=== PATIENT | female | born 2000 | race Caucasian/White ===

== ENCOUNTER → 2022-02-11 10:30 | Outpatient (BNVA) | payer MEDICAID, SELFPAY | PROVIDERS: Family Provider Pediatrics Adolescent Medicine; PCP Pediatrics Adolescent Medicine; Visit Provider Nurse Practitioner Women's Health | DX: N92.6 Irregular menstruation, unspecified (principal) | CPT/HCPCS: 81025 ==

== ENCOUNTER → 2022-02-21 09:25 | Outpatient (BNVA) | payer MEDICAID, SELFPAY | PROVIDERS: Family Provider Pediatrics Adolescent Medicine; PCP Pediatrics Adolescent Medicine; Visit Provider Obstetrics & Gynecology | DX: Z34.90 Encounter for supervision of normal pregnancy, unspecified, unspecified trimester (principal) | CPT/HCPCS: 80307; 81000; 82950; 84443; 85025; 86592; 86762; 86803; 86850; 86900; 87086; 87340; 87806 ==

== ENCOUNTER → 2022-03-03 08:16 | Outpatient (BNVA) | payer MEDICAID, SELFPAY | PROVIDERS: Family Provider Pediatrics Adolescent Medicine; PCP Pediatrics Adolescent Medicine; Visit Provider Nurse Practitioner Women's Health | DX: Z34.90 Encounter for supervision of normal pregnancy, unspecified, unspecified trimester (principal) | CPT/HCPCS: 81000; 82951; 82952; 87086; 87491; 87591; 87661 ==

== ENCOUNTER → 2022-04-16 13:44 | Outpatient (BNVA) | payer MEDICAID, SELFPAY | PROVIDERS: Family Provider Pediatrics Adolescent Medicine; PCP Pediatrics Adolescent Medicine; Visit Provider Obstetrics & Gynecology | DX: Z34.90 Encounter for supervision of normal pregnancy, unspecified, unspecified trimester (principal) | CPT/HCPCS: 81000; 87086 ==

== ENCOUNTER 2022-04-19 21:54 | Emergency (ER) | payer MEDICAID, SELFPAY ==
[2022-04-19 21:58] VITALS: BP 160/104; PULSE 111; RESP 16; TEMP 37.1; O2SAT 100
--- NOTE | 2022-04-19 22:11 | W.ED.ABDPA2 ---
HPI - Abdominal Pain General: Chief Complaint: Abdominal Pain Stated Complaint: abd pain Time Seen by Provider: 04/19/22 21:58 Source: patient Mode of arrival: ambulatory Limitations: no limitations History of Present Illness: 21-year-old female who is currently 18 weeks states she been having some left upper quadrant abdominal pain throughout the day. States that pain has been cramping and sharp in nature she is also had a mild headache this is her first she denies any lower abdominal pain denies any discharge or bleeding. Patient is hypertensive here states she had some mild hypertension throughout the is not on any medication at this time. Associated Symptoms: Denies chills, dysuria and fever(s) Review of Systems Const: Denies: fever(s), chills, body aches or change in appetite Eyes: Denies: blurry vision or eye discomfort ENMT: Denies: throat pain or dental pain Card: Denies: chest pain Resp: Denies: dyspnea GI: Reports: abdominal pain : Denies: dysuria Musc: Denies: neck pain or back pain Skin/Breast: Denies: rash Neuro: Reports: headache(s) Psych: Denies: depression Dominguez/Lymph: Denies: easy bruising All/Imm: Denies: urticaria PFSH ED PFSH: Medical History No pertinent past medical history neghx: htn,dm,thyroid,dvt/pe PCP: Dr. Austin Surgical History Hx of oral surgery (~2014) unsure of specifics of the surgery Hx of tonsillectomy (~2012) Family History Family/Other Breast cancer Maternal Great Grandmother--dx age 60's Denies family history of Colon cancer Ovarian cancer Diabetes Heart disease Hypercholesteremia Hypertension Uterine cancer Thyroid disease Stroke Social History Smoking and tobacco status: never smoked Physical Exam Const: COMMON NORMALS: no acute distress, patient oriented x3 and healthy appearing HENMT: COMMON NORMALS: normocephalic and atraumatic HEAD & SCALP: normocephalic and atraumatic Eye: COMMON NORMALS: Equal, round and reactive pupils present and EOMs intact bilaterally PUPIL: Yes Equal, round and reactive pupils present Neck/C-Spine: COMMON NORMALS: full ROM and supple Chest: COMMONS NORMALS: normal inspection of the chest and normal palpation of entire chest wall Resp: COMMON NORMALS: normal respiratory effort, No retractions, No use of accessory muscles and clear to auscultation bilaterally AUSCULTATION: clear to auscultation bilaterally Cardio: COMMON NORMALS: regular rate, regular rhythm and No murmurs present (Cardio) RATE: regular rate RHYTHM: regular rhythm GI: COMMON NORMALS: Normal to inspection, nondistended, normoactive bowel sounds present, Soft to palpation, non-tender and no masses PALPATION: Yes Soft to palpation Extremity: COMMON NORMALS: normal to inspection and full ROM Neuro: COMMON NORMALS: patient oriented x3, moves all extremities and no focal motor deficits Psych: COMMON NORMALS: mental status grossly normal, Normal thought process present and cooperative THOUGHT PROCESS: Normal thought process present Skin: COMMON NORMALS: no rashes or lesions noted and no wounds GENERAL SKIN EXAM: no rashes or lesions noted Course Vital Signs: Vital signs: Vital Signs Temperature 98.7 F 04/19/22 21:58 Pulse Rate 111 H 04/19/22 21:58 Respiratory Rate 17 04/19/22 22:33 Blood Pressure 160/104 04/19/22 21:58 Pulse Oximetry 98 04/19/22 22:33 MDM - Abdominal Pain Medical Decision Making Patient presents with abdominal pain that is since improved urine does show a acute cystitis her blood work here is all normal. She has no lower abdominal pain no signs of any OB issues. Patient was originally hypertensive here blood pressures came down without any treatments currently 138/87. She has no protein in her urine she is for 20 weeks no signs of preeclampsia at this time I did inform her she needs to watch her blood pressure closely and follow-up with her OB next week she is return if worsening she understands agrees to plan. Lab Data : 04/19/22 22:15 04/19/22 22:15 Labs/Radiology: Laboratory Results WBC 9.7 10^3/uL (4.5-13.0) 04/19/22 22:15 RBC 4.74 10^6/uL (4.1-5.3) 04/19/22 22:15 Hgb 12.7 g/dL (11.5-15.3) 04/19/22:15 Hct 39.6 % (37.0-47.0) 04/19/22 22:15 MCV 83.5 fl (81-99) 04/19/22 22:15 MCH 26.8 pg (28.0-34.0) L 04/19/22:15 MCHC 32.1 g/dL (30.0-36.0) 04/19/22:15 RDW 13.7 % (12.1-15.1) 04/19/22:15 Plt Count 247 10^3/cmm (130-400) 04/19/22:15 MPV 11.2 fL (7.4-10.4) H 04/19/22:15 Neut % (Auto) 54.9 % 04/19/22:15 Lymph % (Auto) 38.3 % 04/19/22:15 [place] % (Auto) 5.5 % 04/19/22:15 Eos % (Auto) 0.7 % 04/19/22:15 Baso % (Auto) 0.2 % 04/19/22:15 Neut # (Auto) 5.34 10^3/uL (1.8-8.0) 04/19/22:15 Lymph # (Auto) 3.7 10^3/uL (1.5-6.5) 04/19/22:15 [place] # (Auto) 0.5 10^3/uL (0.2-0.9) 04/19/22:15 Eos # (Auto) 0.1 10^3/uL (0.0-0.8) 04/19/22:15 Baso # (Auto) 0.0 10^3/uL (0.0-0.1) 04/19/22:15 Nucleated RBC % (auto) 0 % 04/19/22:15 Nucleated RBCs # 0.0 /100WBC 04/19/22 22:15 Sodium 136 mmol/L (136-145) 04/19/22:15 Potassium 3.6 mmol/L (3.5-5.1) 04/19/22 22:15 Chloride 102 mmol/L (98-107) 04/19/22 22:15 Carbon Dioxide 20 mmol/L (22-29) L 04/19/22 22:15 Anion Gap 17.6 (5-19) 04/19/22 22:15 BUN 6 mg/dL (6-20) 04/19/22 22:15 Creatinine 0.4 mg/dL (0.5-0.9) L 04/19/22:15 GFR Calculation 205.6 mL/min (90-130) H 04/19/22 22:15 Glucose 129 mg/dL (65-115) H 04/19/22 22:15 Calculated Osmolality 281 mOsm/kg (285-295) L 04/19/22:15 Calcium 9.5 mg/dL (8.5-10.5) 04/19/22:15 Total Bilirubin 0.2 mg/dL (0.15-1.2) 04/19/22:15 AST 15 U/L (0-32) 04/19/22:15 ALT 15 U/L (0-33) 04/19/22 22:15 Alkaline Phosphatase 73 U/L (35-105) 04/19/22 22:15 Lactate Dehydrogenase 164 U/L (135-214) 04/19/22 22:15 Total Protein 7.2 g/dL (6.6-8.7) 04/19/22 22:15 Albumin 3.8 g/dL (3.5-5.2) 04/19/22:15 Globulin 3.4 g/dL (1.3-4.6) 04/19/22:15 Lipase 33 U/L (13-60) 04/19/22 22:15 Urine Color Yellow (Yellow) 04/19/22:45 Urine Appearance Hazy (CLEAR) A 04/19/22:45 Urine pH 5 (5-7) 04/19/22:45 Ur Specific [place] 1.030 (1.005-1.030) 04/19/22:45 Urine Protein Neg (Negative) 04/19/22 22:45 Urine Glucose (UA) 1+ (Normal) H 04/19/22:45 Urine Ketones 2+ (Negative) H 10/15/22 22:45 Urine Blood Neg (Negative) 04/19/22 22:45 Urine Nitrate Negative (Negative) 04/19/22 22:45 Urine Bilirubin Neg (Negative) 04/19/22 22:45 Urine Urobilinogen Neg mg/dL (Negative) 04/19/22 22:45 Ur Leukocyte Esterase 2+ (Negative) H 04/19/22 22:45 Urine RBC 0-4 /hpf (0-2) H 04/19/22 22:45 Urine WBC 15-25 /hpf (0-5) H 04/19/22 22:45 Ur Squamous Epith Cells 15-25 /hpf (0-5) H 04/19/22 22:45 Amorphous Sediment Not Reportable 04/19/22 22:45 Urine Bacteria 2+ /hpf (NONE) H 04/19/22 22:45 Urine Mucus 1+ /hpf 04/19/22 22:45 Discharge Plan Discharge Patient Disposition: Home Clinical Impression: Acute cystitis, Abdominal pain, Hypertension Condition: Stable Prescriptions: New cephalexin 500 mg capsule 500 mg PO TID 7 Days Qty: 21 0RF ondansetron 4 mg tablet,disintegrating 4 mg PO Q6H PRN (Reason: nausea and vomiting) Qty: 14 0RF Discharge Orders: Discharge ED (Routine); Ordered 04/19/22 Ordered By: Pedro Lopez Referrals: Jaycee Gross MD [Physician] - 1-3 days Alejandro Austin MD [Primary Care Provider] - Discharge Diet: Advance as tolerated Discharge Activity: Resume usual activity Patient Instructions: Urinary Tract Infection in Women (ED), Abdominal Pain (ED) Coding Level of Care Code ED Traveling Clerk for Chg Fwd Exam Comprehensive
[2022-04-19 22:22] LABS: Basophils % 0.2 %; Eosinophils # 0.1 10^3/uL (0.0-0.8); Eosinophils % 0.7 %; Hematocrit 39.6 % (37.0-47.0); Hemoglobin 12.7 g/dL (11.5-15.3); Lymphocytes # 3.7 10^3/uL (1.5-6.5); Lymphocytes % 38.3 %; Mean Corpuscular HGB Conc 32.1 g/dL (30.0-36.0); Mean Corpuscular Hemoglobin 26.8 pg (28.0-34.0); Mean Corpuscular Volume 83.5 fl (81-99); Mean Platelet Volume 11.2 fL (7.4-10.4); Monocytes # 0.5 10^3/uL (0.2-0.9); Monocytes % 5.5 %; Neutrophils # 5.34 10^3/uL (1.8-8.0); Neutrophils % 54.9 %; Nucleated Red Blood Cells % 0 %; Platelet Count 247 10^3/cmm (130-400); Red Blood Count 4.74 10^6/uL (4.1-5.3); Red Cell Distribution Width 13.7 % (12.1-15.1); White Blood Count 9.7 10^3/uL (4.5-13.0)
[2022-04-19] MEDS: ondansetron 2 mg/ML SDV 2 mL 4 MG IVP (22:32)
[2022-04-19 22:33] VITALS: RESP 17; O2SAT 98
[2022-04-19] MEDS: HYDROmorphone 1 mg/mL INJ 1 mL 0.5 MG IVP (22:33)
[2022-04-19 22:53] LABS: Alanine Aminotransferase 15 U/L (0-33); Albumin Level 3.8 g/dL (3.5-5.2); Alkaline Phosphatase 73 U/L (35-105); Anion Gap 17.6 (5-19); Aspartate Amino Transferase 15 U/L (0-32); Blood Urea Nitrogen 6 mg/dL (6-20); Calcium 9.5 mg/dL (8.5-10.5); Carbon Dioxide 20 mmol/L (22-29); Chloride 102 mmol/L (98-107); Globulin 3.4 g/dL (1.3-4.6); Glomerular Filtration Rate 205.6 mL/min (90-130); Glucose 129 mg/dL (65-115); Lactate Dehydrogenase 164 U/L (135-214); Lipase 33 U/L (13-60); Osmolality Calculated 281 mOsm/kg (285-295); Potassium 3.6 mmol/L (3.5-5.1); Sodium 136 mmol/L (136-145); Total Bilirubin 0.2 mg/dL (0.15-1.2); Total Protein 7.2 g/dL (6.6-8.7)
[2022-04-19 23:04] LABS: Add Urine Microscopic? YES; Bacteria Urine 2+ /hpf; Bilirubin Urine Neg (Negative); Blood Urine Neg (Negative); Glucose Urine UA 1+ (Normal); Ketones Urine 2+ (Negative); Leukocyte Esterase Urine 2+ (Negative); Nitrate Urine Negative (Negative); Protein Urine Neg (Negative); RBC Urine 0-4 /hpf (0-2); Squamous Epithelial Cell Urine 15-25 /hpf (0-5); Urine Appearance Hazy (CLEAR); Urine Color Yellow (Yellow); Urobilinogen Urine Neg (Negative); WBC Urine 15-25 /hpf (0-5); pH Urine 5 (5-7)
[2022-04-19 23:05] LABS: Add Urine Culture? No; Mucus Urine 1+ /hpf
[2022-04-19] MEDS: cefTRIAXone 1,000 MG in sodium chloride 0.9% (plus) 50 ML 100 MG IV (23:16)
[2022-04-19 23:31] VITALS: BP 119/85; PULSE 94; RESP 24; O2SAT 97
[2022-04-19 23:41] VITALS: BP 119/85; PULSE 94; RESP 24; O2SAT 97
== END 2022-04-19 23:43 | disposition home or self-care (01) ==
PROVIDERS: Emergency Provider Emergency Medicine; PCP Family Medicine
DX: N30.00 Acute cystitis without hematuria (principal); R10.9 Unspecified abdominal pain; I10 Essential (primary) hypertension
CPT/HCPCS: 80053; 81001; 83615; 83690; 85025; 96365; 96375; 99284; J0696; J1170; J2405

== ENCOUNTER 2022-04-26 22:37 | Emergency (ER) | payer MEDICAID, SELFPAY ==
[2022-04-26 22:48] VITALS: BP 144/94; PULSE 97; RESP 16; TEMP 36.9; O2SAT 98; BMI 41.3
[2022-04-26 22:55] VITALS: BP 144/94; PULSE 97; RESP 16; TEMP 36.9; O2SAT 98
--- NOTE | 2022-04-26 22:56 | ED_ITS ---
HPI - General Adult General: Chief complaint: General Medical Stated complaint: swollen throat Time Seen by Provider: 04/26/22 22:55 History of Present Illness: 21-year-old female comes in today for complaints of sore throat and lymph node tenderness. Patient appears nontoxic. Patient appears in mild to no pain. Patient is 19 weeks . Patient is presently on cephalexin for cystitis. Review of Systems Const: Denies: fever(s) ENMT: Reports: throat pain PFSH ED PFSH: Medical History No pertinent past medical history neghx: htn,dm,thyroid,dvt/pe PCP: Dr. Austin Surgical History Hx of oral surgery (~2014) unsure of specifics of the surgery Hx of tonsillectomy (~2012) Family History Family/Other Breast cancer Maternal Great Grandmother--dx age 60's Denies family history of Colon cancer Ovarian cancer Diabetes Heart disease Hypercholesteremia Hypertension Uterine cancer Thyroid disease Stroke Social History Smoking and tobacco status: never smoked Physical Exam Const: COMMON NORMALS: alert HENMT: COMMON NORMALS: Normal external nose present NOSE: Normal external nose present MOUTH: other (Lower lip Chafing with erythema and tenderness.) THROAT: posterior oropharynx normal Neck/C-Spine: COMMON NORMALS: full ROM Resp: COMMON NORMALS: normal respiratory effort and clear to auscultation bilaterally AUSCULTATION: clear to auscultation bilaterally Cardio: COMMON NORMALS: regular rate RATE: regular rate Extremity: COMMON NORMALS: normal to inspection Neuro: SENSORIUM/ORIENTATION: Yes alert Skin: COMMON NORMALS: turgor normal GENERAL SKIN EXAM: turgor normal Course Vital Signs: Vital signs: Vital Signs Temperature 98.4 F 04/26/22 22:55 Pulse Rate 97 04/26/22 22:55 Respiratory Rate 16 04/26/22 22:55 Blood Pressure 144/94 04/26/22 22:55 Pulse Oximetry 98 04/26/22 22:55 [facility] - General Adult Medical Decision Making Patient comes in today with complaints of lip tenderness. On exam patient has erythema and tenderness to the lower lips. Respirations are even lungs are clear to auscultation. Skin is warm and dry. Differential diagnosis includes but not limited to herpes simplex virus, cheilitis, strep pharyngitis. Strep test was negative. Believe patient just has some cheilitis secondary to lip chafing. We will go ahead and cover if mupirocin ointment and hydrocortisone cream and recommend recheck in 3 days. Patient stated understanding and agreed to plan. Lab Data Laboratory Results Group A Strep Rapid Negative (Negative) 04/26/22 23:02 Discharge Plan Discharge Patient Disposition: Home Clinical Impression: Cheilitis Condition: Stable Prescriptions: New mupirocin 2 % ointment 1 applic topical BID Qty: 22 0RF hydrocortisone 1 % cream 1 applic topical TID Qty: 28.35 0RF No Action ondansetron 4 mg tablet,disintegrating 4 mg PO Q6H PRN (Reason: nausea and vomiting) Qty: 14 0RF Discharge Orders: Discharge ED (Routine); Ordered 04/26/22 Ordered By: Doni Page Referrals: Alejandro Austin MD [Primary Care Provider] - Discharge Diet: Usual diet Discharge Activity: Increase activity as tolerated Activity Restrictions/Additional Instructions: Use Chapstick as needed. Apply mupirocin ointment 1 application twice a day for 7 days. Use hydrocortisone cream 3 times a day as needed for skin irritation. If you have no improvement within 3 days have the site reevaluated. Coding Level of Care Code ED Horse Farm Manager for Derrick Marroquin
[2022-04-26 23:17] LABS: Rapid Strep A Test Negative (Negative)
[2022-04-26 23:43] VITALS: BP 139/76; PULSE 90; RESP 16; TEMP 36.9; O2SAT 98
== END 2022-04-26 23:45 | disposition home or self-care (01) ==
PROVIDERS: Emergency Provider Nurse Practitioner Family; PCP Family Medicine
DX: K13.0 Diseases of lips (principal)
CPT/HCPCS: 87081; 87880; 99283

== ENCOUNTER → 2022-04-29 09:49 | Outpatient (BNVA) | payer MEDICAID, SELFPAY | PROVIDERS: PCP Family Medicine; Visit Provider Nurse Practitioner Family | DX: R50.9 Fever, unspecified (principal) | CPT/HCPCS: 87071; 87400; 87880 ==

== ENCOUNTER → 2022-05-02 11:25 | Outpatient (BNVA) | payer MEDICAID, SELFPAY | PROVIDERS: PCP Family Medicine; Visit Provider Obstetrics & Gynecology | DX: Z34.90 Encounter for supervision of normal pregnancy, unspecified, unspecified trimester (principal) | CPT/HCPCS: 81511 ==

== ENCOUNTER 2022-05-13 10:35 | Outpatient (CLI) | payer MEDICAID, SELFPAY ==
[2022-05-13 10:50] VITALS: BP 132/76; PULSE 100; TEMP 35.9
[2022-05-13 10:53] VITALS: RESP 16
[2022-05-13 10:54] VITALS: BMI 41.6
--- NOTE | 2022-05-13 11:03 | US_ITS ---
WS: [id number] OB ultrasound, 05/13/2022 Clinical Data: Check placenta, measure fetus Comparison: OB ultrasound, 05/02/2022 Findings: There is a single intrauterine in the breech presentation. The placenta is Anterior and gra de 0. The cervix measures 3.85 cm and is closed. There is a normal amount of amnionic fluid. The feta l heart rate is 147 beats per minute. Measurements of growth and development: BPD: 5.0 cm 21 weeks 2 days HC: 18.8 cm 21 weeks 1 day AC: 16.9 cm 21 weeks 6 days FL: 3.8 cm 22 weeks 0 days The estimated weight is 453 or approximately 1 lb. 0 oz. The estimated gestational age is 21w4d with an DILMA of approximately 09/19/2022. / OB limited [id number] Impression: 1. Single intrauterine in breech presentation. 2. Estimated gestational age 21w4d with an DILMA of 09/19/2022. 3. heart rate 147 beats per minute.
[2022-05-13 11:06] VITALS: BP 125/83; PULSE 104
[2022-05-13 11:20] VITALS: BP 139/66; PULSE 95
[2022-05-13 11:35] VITALS: BP 142/68; PULSE 92
[2022-05-13 11:50] VITALS: BP 143/69; PULSE 102
== END 2022-05-13 12:01 | disposition home or self-care (01) ==
LOC: OPOB 10:40 → OBGYN 10:42
PROVIDERS: PCP Family Medicine; Visit Provider Obstetrics & Gynecology
DX: O26.899 Other specified pregnancy related conditions, unspecified trimester (principal); Z3A.00 Weeks of gestation of pregnancy not specified; R10.9 Unspecified abdominal pain
CPT/HCPCS: 76815; 99211

== ENCOUNTER 2022-06-15 22:44 | Outpatient (CLI) | payer MEDICAID, SELFPAY ==
[2022-06-15] VITALS (7 sets, daily range): BP systolic 122–157; BP diastolic 75–96; PULSE 102–131; RESP 16; TEMP 35.5–37.2; BMI 43.9
[2022-06-15 23:46] LABS: Bilirubin Urine Neg (Negative); Blood Urine 3+ (Negative); Glucose Urine UA Norm (Normal); Ketones Urine Negative (Negative); Leukocyte Esterase Urine 2+ (Negative); Nitrate Urine Negative (Negative); Protein Urine 3+ (Negative); Specific Gravity, Urine 1.025 (1.005-1.030); Urine Appearance Cloudy (CLEAR); Urine Color Yellow (Yellow); Urobilinogen Urine 1 mg/dL (Negative); pH Urine 6 (5-7)
[2022-06-15 23:48] LABS: Bacteria Urine 3+ /hpf; Squamous Epithelial Cell Urine 25-40 /hpf (0-5); WBC Urine TOO NUMEROUS TO CNT /hpf (0-5)
[2022-06-15 23:49] LABS: Add Urine Culture? No
[2022-06-16 00:17] VITALS: BP 142/90; PULSE 111
[2022-06-16] MEDS: lactated ringers 1,000 ML 125 ML IV (00:27)
[2022-06-16 00:37] VITALS: BP 119/78; PULSE 109
[2022-06-16 00:39] LABS: Basophils % 0.2 %; Eosinophils % 0.3 %; Hematocrit 37.4 % (37.0-47.0); Hemoglobin 11.7 g/dL (11.5-15.3); Lymphocytes # 3.4 10^3/uL (1.5-6.5); Lymphocytes % 26.4 %; Mean Corpuscular HGB Conc 31.3 g/dL (30.0-36.0); Mean Corpuscular Hemoglobin 26.4 pg (28.0-34.0); Mean Corpuscular Volume 84.2 fl (81-99); Mean Platelet Volume 11.5 fL (7.4-10.4); Monocytes # 0.7 10^3/uL (0.2-0.9); Monocytes % 5.4 %; Neutrophils # 8.67 10^3/uL (1.8-8.0); Neutrophils % 67.3 %; Nucleated Red Blood Cells % 0 %; Platelet Count 252 10^3/cmm (130-400); Red Blood Count 4.44 10^6/uL (4.1-5.3); Red Cell Distribution Width 14.4 % (12.1-15.1); White Blood Count 12.9 10^3/uL (4.5-13.0)
[2022-06-16] MEDS: ampicillin 2,000 MG in sodium chloride 0.9% (plus) 50 ML 100 MG IV (00:40)
[2022-06-16 00:57] VITALS: BP 122/72; PULSE 94
--- NOTE | 2022-06-16 01:10 | P.TNLD_ITS ---
OB L&D Triage Visit Information: Date of evaluation: 06/16/22 Comments/Additional reason(s) for visit: 21yo C. female at 26wk IUP in with c/o Painful urination onset 06/15/22. She denies fever, nausea,vomiting or vaginal bleeding. care with Dr. Gross. Admits to good FM. Evaluation: monitor accelerations: Present 15x15 Laboratory results: Laboratory Tests 06/15/22 06/16/22 23:16 00:18 WBC 12.9 RBC 4.44 Hgb 11.7 Hct 37.4 MCV 84.2 MCH 26.4 L MCHC 31.3 RDW 14.4 Plt Count 252 MPV 11.5 H Neut % (Auto) 67.3 Lymph % (Auto) 26.4 Barnes % (Auto) 5.4 Eos % (Auto) 0.3 Baso % (Auto) 0.2 Neut # (Auto) 8.67 H Lymph # (Auto) 3.4 Barnes # (Auto) 0.7 Eos # (Auto) 0.0 Baso # (Auto) 0.0 Nucleated RBC % (a uto) 0 Nucleated RBCs # 0.0 Urine Color Yellow Urine Appearance Cloudy A Urine pH 6 Ur Specific Gravit y 1.025 Urine Protein 3+ H Urine Glucose (UA) Norm Urine Ketones Negative Urine Blood 3+ H Urine Nitrate Negative Urine Bilirubin Neg Urine Urobilinogen 1 H Ur Leukocyte Cheryl ase 2+ H Urine RBC 10-15 H Urine WBC Too numerous to c nt H Ur Squamous Epith Cells 25-40 H Amorphous Sediment Not Reportable Urine Bacteria 3+ H Vital signs: Vital Signs - 24 hr 06/15/22 23:01 06/15/22 23:02 06/15/22 23:05 Temperature 95.9 F L Pulse Rate 131 H 115 H Respiratory Rate Blood Pressure 157/96 154/75 06/15/22 23:37 06/15/22 23:07 06/15/22 23:57 Temperature 98.9 F Pulse Rate 117 H 102 H Respiratory Rate Blood Pressure 131/78 122/78 06/16/22 00:17 06/16/22 00:37 06/16/22 00:57 Temperature Pulse Rate 111 H 109 H 94 Respiratory Rate Blood Pressure 142/90 119/78 122/72 06/15/22 23:59 Temperature Pulse Rate Respiratory Rate 16 Blood Pressure Care DILMA Calculator Estimated Delivery Date Method Current WG Current Estimate 09/19/22 LMP (Certain) 26w 3d Final Diagnosis Final Diagnosis (1) Dysuria during in second trimester: Status: Acute Code(s): O26.892 - Other specified related conditions, second trimester; R30.0 - Dysuria (2) UTI (urinary tract infection) in in second trimester: Plan: 1. UA with C/S, CBC 2. IV hydration 3. Ampicillin 2gm IVPB 4. Rx Ampicillin 500mg TID x 7 days 5. Pt to call Dr. Gross office after 24 hr for results of C/S. 6. Tylenol for pain if needed. 7. Discussed need to increase fluids (water).... 8. DC to home after IV fluids and Antibiotics completed. Status: Acute Code(s): O23.42 - Unspecified infection of urinary tract in , second trimester (3) Hematuria due to acute cystitis: Status: Acute Code(s): N30.01 - Acute cystitis with hematuria (4) Morbid obesity: Status: Acute Code(s): E66.01 - Morbid (severe) obesity due to excess calories (5) Supervision of normal : Status: Acute Code(s): Z34.90 - Encounter for supervision of normal , unspecified, unspecified trimester Other Information/Follow up F/U with Dr. Gross by phone after 24 hr and keep appointment. Coding Level of Care Code Acute Costume Rental Clerk for [facility] Fwd Diagnoses Dysuria during in second trimester O26.892; R30.0 UTI (urinary tract infection) in in second trimester O23.42 Hematuria due to acute cystitis N30.01 Morbid obesity E66.01 Supervision of normal Z34.90
[2022-06-16 01:17] VITALS: BP 118/70; PULSE 103
[2022-06-16 01:37] VITALS: BP 133/85; PULSE 94
--- NOTE | 2022-06-16 02:02 | PC.NURSE ---
Prescription script from Dr. Paulson was given to pt at this time.
== END 2022-06-16 02:04 | disposition home or self-care (01) ==
LOC: OPOB 22:45 → OBGYN 22:46
PROVIDERS: PCP Family Medicine; Visit Provider Obstetrics & Gynecology
DX: O23.40 Unspecified infection of urinary tract in pregnancy, unspecified trimester (principal); Z3A.00 Weeks of gestation of pregnancy not specified
CPT/HCPCS: 12345; 36415; 81001; 85025; 87077; 87086; 87186; 99211; J0290; J7120

== ENCOUNTER → 2022-07-11 14:00 | Outpatient (BNVA) | payer MEDICAID, SELFPAY | PROVIDERS: PCP Family Medicine; Visit Provider Obstetrics & Gynecology | DX: Z34.90 Encounter for supervision of normal pregnancy, unspecified, unspecified trimester (principal); R31.9 Hematuria, unspecified | CPT/HCPCS: 82950; 84315; 85025; 87077; 87086; 87184 ==

== ENCOUNTER → 2022-07-25 09:38 | Outpatient (BNVA) | payer MEDICAID, SELFPAY | PROVIDERS: PCP Family Medicine; Visit Provider Obstetrics & Gynecology | DX: Z34.90 Encounter for supervision of normal pregnancy, unspecified, unspecified trimester (principal) | CPT/HCPCS: 84315; 87077; 87086; 87184 ==

== ENCOUNTER → 2022-08-08 09:30 | Outpatient (BNVA) | payer MEDICAID, SELFPAY | PROVIDERS: PCP Family Medicine; Visit Provider Obstetrics & Gynecology | DX: Z34.90 Encounter for supervision of normal pregnancy, unspecified, unspecified trimester (principal) | CPT/HCPCS: 82951; 82952; 84315; 85025 ==

== ENCOUNTER → 2022-09-05 10:09 | Outpatient (BNVA) | payer MEDICAID, SELFPAY | PROVIDERS: PCP Family Medicine; Visit Provider Obstetrics & Gynecology | DX: Z34.90 Encounter for supervision of normal pregnancy, unspecified, unspecified trimester (principal); R82.90 Unspecified abnormal findings in urine | CPT/HCPCS: 84315; 87086 ==

== ENCOUNTER 2022-09-12 05:01 | Inpatient (IN) | payer MEDICAID, SELFPAY ==
[2022-06-15 23:59] VITALS: RESP 16
--- NOTE | 2022-09-11 08:26 | P.ANESASSM_ITS ---
Pre-Anesthetic Assessment Height/Weight: Height 1.73 m Operation Date: 09/12/22 07:20 Proposed Procedures p Section(Not Applicable) - Jaycee Gross MD Familial anesthetic complications: None Was Beta Meliton taken within 24 hours: N/A Was Clonidine taken within 24 hours: N/A Social No alcohol and No tobacco Exam alert, oriented x 3, clear to auscultation bilaterally and regular rate & rhythm Airway Mallampati: Class I Dentition: full History/ROS No significant complaints Anesthetic Plan ASA status: 2 Anesthesia: Regional (specify below) Risk of > 500 ml blood loss (7ml/kg in children): Yes, adequate IV access and fluids planned Medications/Allergies Home Medications Medication Instructions Recorded Confirmed Last Taken Type [id number] 6-dha 1 tab PO DAILY 05/13/22 09/05/22 05/12/22 21:00 History ferrous sulfate 325 mg (65 mg 325 mg PO TID 07/25/22 09/05/22 Unknown History iron) tablet Allergies Allergy/AdvReac Type Severity Reaction Status Date / Time No Known Allergies Allergy Verified 09/05/22 10:05 [facility] Anesthesia Medical History No pertinent past medical history neghx: htn,dm,thyroid,dvt/pe PCP: Dr. Austin Surgical History Hx of oral surgery (~2014) unsure of specifics of the surgery Hx of tonsillectomy (~2012) Family History Family/Other Breast cancer Maternal Great Grandmother--dx age 60's Denies family history of Colon cancer Ovarian cancer Diabetes Heart disease Hypercholesteremia Hypertension Uterine cancer Thyroid disease Stroke Female Reproductive History Spontaneous abortions: No Data Anesthesia Cardiac Studies: No Data to Display
[2022-09-12] VITALS (51 sets, daily range): BP systolic 116–170; BP diastolic 53–96; PULSE 84–117; RESP 16; TEMP 35.6–36.5; O2SAT 91–100; BMI 44.8
[2022-09-12] MEDS: ceFAZolin 2,000 MG in sodium chloride 0.9% (plus) 50 ML 100 MG IV (05:28)
[2022-09-12] MEDS: lactated ringers 1,000 ML 999 ML IV ×2 (05:28→06:17)
[2022-09-12 05:32] LABS: Basophils % 0.2 %; Eosinophils % 0.4 %; Hematocrit 34.8 % (37.0-47.0); Hemoglobin 10.6 g/dL (11.5-15.3); Lymphocytes # 3.5 10^3/uL (1.5-6.5); Lymphocytes % 39.1 %; Mean Corpuscular HGB Conc 30.5 g/dL (30.0-36.0); Mean Corpuscular Hemoglobin 24.9 pg (28.0-34.0); Mean Corpuscular Volume 81.7 fl (81-99); Mean Platelet Volume 11.3 fL (7.4-10.4); Monocytes # 0.5 10^3/uL (0.2-0.9); Monocytes % 5.6 %; Neutrophils # 4.85 10^3/uL (1.8-8.0); Neutrophils % 54.5 %; Nucleated Red Blood Cells % 0 %; Platelet Count 228 10^3/cmm (130-400); Red Blood Count 4.26 10^6/uL (4.1-5.3); Red Cell Distribution Width 15.1 % (12.1-15.1); White Blood Count 8.9 10^3/uL (4.5-13.0)
[2022-09-12] MEDS: metoclopramide 5 mg/mL SDV 2 mL 10 MG IVP (06:43)
[2022-09-12] MEDS: famotidine 20 mg/2 mL INJ IVP (06:43)
[2022-09-12] MEDS: citric acid-sodium citrate 30 mL UDC PO (06:43)
[2022-09-12] MEDS: lactated ringers 1,000 ML 125 ML IV (06:44)
--- NOTE | 2022-09-12 07:36 | W.PM.OPSUD ---
Surgery/Procedure H&P Update DATE OF PROCEDURE: September 12, 2022 DATE H&P PERFORMED: 09/05/22 H&P UPDATE INFORMATION: I have reviewed H&P completed within last 30 days, I have examined patient prior to procedure and No changes to prior documentation CHANGES TO PREVIOUS DOCUMENTATION: The patient requests a primary delivery PLANNED PROCEDURE: Operation Date: 09/12/22 07:20 Proposed Procedures p Section(Not Applicable) - Jaycee Gross MD Related Problem List Diagnoses (1) Morbid obesity: (2) Supervision of normal :
--- NOTE | 2022-09-12 08:55 | P.OP_ITS ---
Operative Report Date of procedure: September 12, 2022 Pre-op diagnosis: iup@ 39 weeks gestation, requested primary , morbid obesity Post-op diagnosis: same Post-op findings: Term female in the cephalic presentation Procedure done: primary Specimens removed/disposition: placenta- discarded Surgeon: Jaycee Gross Anesthesia: Other (spinal) Estimated blood loss (mL): 600 IV fluids (mL): 1,500 Urine output (mL): 300 Complications: none Condition: stable Disposition: PACU Procedure: The patient was taken to the operating room where spinal anesthesia was administered and found to be adequate. She was prepped and draped in the normal sterile fashion in the dorsal supine position with a leftward tilt. A Pfannenstiel skin incision was made and carried down to the underlying layer of fascia. The fascia was nicked in the midline and extended laterally with the Das scissors. The fascia was then tented up and the rectus muscles dissected off sharply. The rectus muscles were and the peritoneum entered blun tly with the digit. The peritoneal incision was extended superiorly and inferiorly with good visualization of the bladder. The Joni O retractor was placed. It was clear of any bowel or omentum. The bladder flap was created sharply with the Metzenbaum scissors. A low transverse uterine incision was made and carried down to the bag of water. The bag of water was ruptured and the uterine incision extended cephalocaudad. The scalp was grasped and brought through the incision. The nose and mouth were bulb suctioned. The shoulders and body delivered atraumatically. The baby was allowed to rest, while being dried, for 1 minute and then the cord was clamped and cut. The baby was handed to the waiting clinical case manager. The placenta was delivered by expression. The uterus was exteriorized and cleared of all clots and debris. The uterine incision was closed with 0 Vicryl in a running fashion. A second imbricating layer of 3-0 Monocryl was used to close the uterus. The bladder flap was closed with 3-0 Monocryl. There was excellent hemostasis. The Joni O retractor was removed. The uterus was returned to the abdomen. The peritoneum was closed with 3-0 Monocryl, incorporating the rectus muscle. The fascia was closed with 0 Vicryl in 2 separate sutures overlapping in the midline. The skin was closed with subcuticular suture. . Apgars on baby 9 at 1 minute and 9 at 5 minutes. weight 7 pounds 9 ounces. Mother and baby were stable post delivery.
[2022-09-12] MEDS: ketorolac 30 mg/mL INJ IVP ×2 (11:21→17:35)
--- NOTE | 2022-09-12 12:23 | ANE.PACU2 ---
Inpatient post-anesthesia follow up: Airway intact: Yes Vital signs: Temperature 97.3 F Pulse Rate 97 Respiratory Rate 16 Blood Pressure 139/74 Pulse Oximetry 93 Oxygen Delivery Me thod Room Air Oxygen Flow Rate Fraction of Inspir ed Oxygen Hydration adequate: Yes Nausea and vomiting: No Pain level: 1 Mental status: Baseline
[2022-09-12] MEDS: dextrose 5%-lactated ringers 1,000 ML 125 ML IV ×2 (12:37→20:02)
--- NOTE | 2022-09-12 13:10 | PM.OPHPUD ---
Labor & Delivery H&P Update Date of Procedure: September 12, 2022 Date H&P Performed: 09/05/22 H&P update information: I have reviewed H&P completed within last 30 days, I have examined patient prior to procedure and Changes to prior documentation as noted here (Premature rupture of membrane) Admission Diagnosis: Planned procedure: Operation Date: 09/12/22 07:00 Proposed Procedures p Section(Not Applicable) - Jaycee Gross MD
[2022-09-12] MEDS: ferrous sulfate EC 325 mg Tablet PO (17:35)
[2022-09-12] MEDS: docusate sodium 100 mg Capsule PO (17:35)
[2022-09-12 18:07] LABS: Basophils % 0.2 %; Eosinophils % 0.1 %; Hematocrit 32.8 % (37.0-47.0); Hemoglobin 10.1 g/dL (11.5-15.3); Lymphocytes # 3.1 10^3/uL (1.5-6.5); Lymphocytes % 27.8 %; Mean Corpuscular HGB Conc 30.8 g/dL (30.0-36.0); Mean Corpuscular Hemoglobin 25.1 pg (28.0-34.0); Mean Corpuscular Volume 81.4 fl (81-99); Mean Platelet Volume 12.2 fL (7.4-10.4); Monocytes # 0.7 10^3/uL (0.2-0.9); Monocytes % 6.1 %; Neutrophils # 7.36 10^3/uL (1.8-8.0); Neutrophils % 65.4 %; Nucleated Red Blood Cells % 0 %; Platelet Count 215 10^3/cmm (130-400); Red Blood Count 4.03 10^6/uL (4.1-5.3); Red Cell Distribution Width 15.1 % (12.1-15.1); White Blood Count 11.3 10^3/uL (4.5-13.0)
[2022-09-12 18:28] LABS: Urine Creatinine 223 mg/dL (28-217)
[2022-09-12 18:34] LABS: Alanine Aminotransferase 9 U/L (0-33); Albumin Level 3.4 g/dL (3.5-5.2); Alkaline Phosphatase 118 U/L (35-105); Anion Gap 16.7 (5-19); Aspartate Amino Transferase 16 U/L (0-32); Blood Urea Nitrogen 5 mg/dL (6-20); Calcium 9.1 mg/dL (8.5-10.5); Carbon Dioxide 21 mmol/L (22-29); Chloride 99 mmol/L (98-107); Globulin 2.9 g/dL (1.3-4.6); Glomerular Filtration Rate 205.6 mL/min (90-130); Glucose 105 mg/dL (65-115); Osmolality Calculated 274 mOsm/kg (285-295); Potassium 3.7 mmol/L (3.5-5.1); Sodium 133 mmol/L (136-145); Total Bilirubin 0.3 mg/dL (0.15-1.2); Total Protein 6.3 g/dL (6.6-8.7); UPRO/UCREAT Ratio 0.23 mg/mg CR; Uric Acid 5.9 mg/dL (2.4-5.7); Urine Protein Random 51 mg/dL
[2022-09-12] MEDS: sodium chloride 0.9% 500 ML 999 ML IV (19:27)
[2022-09-13] VITALS (8 sets, daily range): BP systolic 118–156; BP diastolic 71–87; PULSE 77–100; RESP 16; TEMP 35.8–37.1; O2SAT 99
[2022-09-13] MEDS: ketorolac 30 mg/mL INJ IVP (01:26)
[2022-09-13] MEDS: sodium chloride 0.9% 500 ML 999 ML IV (02:12)
--- NOTE | 2022-09-13 07:50 | PM.PN ---
Subjective Subjective: The patient is doing well this morning. Overnight, she has slightly low urine output. A bolus was given and the urine output picked up. Vitals/I&O/Wt Last Vital Signs Temp 96.4 F L 09/13/22 04:30 Pulse 81 09/13/22 04:30 Resp 16 09/12/22 09:30 BP 118/76 09/13/22 04:30 Pulse Ox 93 09/12/22 11:21 O2 Del Method 09/12/22 09:30 09/12/22 09/13/22 09/13/22 22:59 06:59 14:59 Intake Total 1427.083 / 1427.083 Output Total 425 / 1125 1225 / 2350 Balance 1002.083 / 302.083 -1225 / -922.917 Weight last 48 hrs Weight 295 lb Physical Exam Narrative: The patient is doing well today. She has had her cosby removed and she is voiding well. She is tolerating a regular diet. Pain is well controlled. Const: COMMON NORMALS: no acute distress, patient oriented x3, no limitations, healthy appearing, alert and well nourished GENERAL APPEARANCE: cooperative, comfortable, well kempt and well developed ORIENTATION/CONSCIOUSNESS: Yes awake, Yes oriented to person, Yes oriented to place and Yes oriented to time Resp: COMMON NORMALS: normal respiratory effort EFFORT & INSPECTION: Yes able to speak in complete sentences GI: COMMON NORMALS: Soft to palpation and non-tender PALPATION: Yes Soft to palpation Extremity: COMMON NORMALS: no calf tenderness Neuro: COMMON NORMALS: patient oriented x3 SENSORIUM/ORIENTATION: Yes alert, Yes oriented to person, Yes oriented to place and Yes oriented to time Psych: APPEARANCE: Yes well kempt Urinary Catheter Management: Cosby Latex: Cath Placed During This Visit: yes, but has since been removed by the nurse Reason for Continuing Indwelling Catheter: Decision to DC Catheter Urinary Catheter Date of Insertion: 09/12/22 Urinary Catheter Time of Insertion: 07:50 Date Urinary Catheter Removed: 09/13/22 Time Urinary Catheter Discontinued: 05:30 Data 09/12/22 17:45 09/12/22 17:45 Attestations Medical Necessity Statement*: The patient had a . She will be her 2 midnights. Coding Level of Care Code Acute Code for Chg Lopez
[2022-09-13] MEDS: ibuprofen 800 mg tablet PO ×3 (09:04→21:23)
[2022-09-13] MEDS: ferrous sulfate EC 325 mg Tablet PO (09:05)
[2022-09-13] MEDS: prenatal vitamin Capsule 1 CAP PO (09:05)
[2022-09-13] MEDS: docusate sodium 100 mg Capsule PO ×2 (09:05→17:04)
[2022-09-13] MEDS: NIFEdipine ER (24 hr) 30 mg Tablet PO (09:05)
[2022-09-13] MEDS: HYDROcodone-acetaminophen 5-325 mg Tablet PO ×2 (14:46→21:22)
[2022-09-14] MEDS: HYDROcodone-acetaminophen 5-325 mg Tablet PO ×2 (01:23→07:07)
[2022-09-14 04:09] VITALS: BP 131/78; PULSE 105
[2022-09-14 04:10] VITALS: TEMP 35.7
[2022-09-14] MEDS: simethicone 80 mg Chew PO (05:30)
[2022-09-14] MEDS: prenatal vitamin Capsule 1 CAP PO (07:07)
[2022-09-14] MEDS: ferrous sulfate EC 325 mg Tablet PO (07:07)
[2022-09-14 10:01] VITALS: BP 128/77; PULSE 95; TEMP 35.9
[2022-09-14] MEDS: ibuprofen 800 mg tablet PO (10:02)
[2022-09-14] MEDS: NIFEdipine ER (24 hr) 30 mg Tablet PO (10:03)
[2022-09-14] MEDS: docusate sodium 100 mg Capsule PO (10:03)
--- NOTE | 2022-09-14 11:47 | PM.DCS ---
Discharge Providers Date of Admission: 09/12/22 05:01 Date of Discharge: September 14, 2022 Attending Provider at Admission: Jaycee Gross MD Attending Provider at Discharge: Jaycee Gross MD Primary Care Provider: Alejandro Austin MD Diagnoses at Discharge Discharge Diagnosis (1) Morbid obesity: Status: Acute (2) Supervision of normal : Status: Acute Reason for Visit Reason for Visit: SCHEDULED C/S Hospital Course Hospital Course The patient was admitted for scheduled section per patient request. She did well postoperatively and was ready for discharge on day #2 Physical Exam Narrative: The patient is doing well this morning. No concerns. Const: COMMON NORMALS: no acute distress, patient oriented x3, no limitations, healthy appearing, alert and well nourished GENERAL APPEARANCE: cooperative, comfortable, well kempt and well developed ORIENTATION/CONSCIOUSNESS: Yes awake, Yes oriented to person, Yes oriented to place and Yes oriented to time Resp: COMMON NORMALS: normal respiratory effort EFFORT & INSPECTION: Yes able to speak in complete sentences GI: COMMON NORMALS: Soft to palpation and non-tender PALPATION: Yes Soft to palpation Extremity: COMMON NORMALS: no calf tenderness Neuro: COMMON NORMALS: patient oriented x3 SENSORIUM/ORIENTATION: Yes alert, Yes oriented to person, Yes oriented to place and Yes oriented to time Psych: COMMON NORMALS: mental status grossly normal, Normal thought process present, cooperative, normal affect and speech normal APPEARANCE: Yes well kempt SPEECH: Yes normal speech THOUGHT PROCESS: Normal thought process present Urinary Catheter Management: Carrion Latex: Cath Placed During This Visit: yes, but has since been removed by the nurse Reason for Continuing Indwelling Catheter: Decision to DC Catheter Urinary Catheter Date of Insertion: 09/12/22 Urinary Catheter Time of Insertion: 07:50 Date Urinary Catheter Removed: 09/13/22 Time Urinary Catheter Discontinued: 05:30 Discharge Data Studies Completed and Pending Laboratory Results WBC 11.3 10^3/uL (4.5-13.0) 09/12/22 17:45 RBC 4.03 10^6/uL (4.1-5.3) L 09/12/22 17:45 Hgb 10.1 g/dL (11.5-15.3) L 09/12/22 17:45 Hct 32.8 % (37.0-47.0) L 09/12/22 17:45 MCV 81.4 fl (81-99) 09/12/22 17:45 MCH 25.1 pg (28.0-34.0) L 09/12/22 17:45 MCHC 30.8 g/dL (30.0-36.0) 09/12/22 17:45 RDW 15.1 % (12.1-15.1) 09/12/22 17:45 Plt Count 215 10^3/cmm (130-400) 09/12/22 17:45 MPV 12.2 fL (7.4-10.4) H 09/12/22 17:45 Neut % (Auto) 65.4 % 09/12/22 17:45 Lymph % (Auto) 27.8 % 09/12/22 17:45 [place] % (Auto) 6.1 % 09/12/22 17:45 Eos % (Auto) 0.1 % 09/12/22 17:45 Baso % (Auto) 0.2 % 09/12/22 17:45 Neut # (Auto) 7.36 10^3/uL (1.8-8.0) 09/12/22 17:45 Lymph # (Auto) 3.1 10^3/uL (1.5-6.5) 09/12/22 17:45 [place] # (Auto) 0.7 10^3/uL (0.2-0.9) 09/12/22 17:45 Eos # (Auto) 0.0 10^3/uL (0.0-0.8) 09/12/22 17:45 Baso # (Auto) 0.0 10^3/uL (0.0-0.1) 09/12/22 17:45 Nucleated RBC % (auto) 0 % 09/12/22 17:45 Nucleated RBCs # 0.0 /100WBC 09/12/22 17:45 Sodium 133 mmol/L (136-145) L 09/12/22 17:45 Potassium 3.7 mmol/L (3.5-5.1) 09/12/22 17:45 Chloride 99 mmol/L (98-107) 09/12/22 17:45 Carbon Dioxide 21 mmol/L (22-29) L 09/12/22 17:45 Anion Gap 16.7 (5-19) 09/12/22 17:45 BUN 5 mg/dL (6-20) L 09/12/22 17:45 Creatinine 0.4 mg/dL (0.5-0.9) L 09/12/22 17:45 GFR Calculation 205.6 mL/min (90-130) H 09/12/22 17:45 Glucose 105 mg/dL (65-115) 09/12/22 17:45 Calculated Osmolality 274 mOsm/kg (285-295) L 09/12/22 17:45 Uric Acid 5.9 mg/dL (2.4-5.7) H 09/12/22 17:45 Calcium 9.1 mg/dL (8.5-10.5) 09/12/22 17:45 Total Bilirubin 0.3 mg/dL (0.15-1.2) 09/12/22 17:45 AST 16 U/L (0-32) 09/12/22 17:45 ALT 9 U/L (0-33) 09/12/22 17:45 Alkaline Phosphatase 118 U/L (35-105) H 09/12/22 17:45 Total Protein 6.3 g/dL (6.6-8.7) L 09/12/22 17:45 Albumin 3.4 g/dL (3.5-5.2) L 09/12/22 17:45 Globulin 2.9 g/dL (1.3-4.6) 09/12/22 17:45 U Random Total Protein 51 mg/dL 09/12/22 17:45 Urine Creatinine 223 mg/dL (28-217) H 09/12/22 17:45 Protein/Creatinin Ratio 0.23 mg/mg CR 09/12/22 17:45 Vitals Last Vital Signs Temp 96.6 F L 09/14/22 10:01 Pulse 95 09/14/22 10:01 Resp 16 09/13/22 09:00 BP 128/77 09/14/22 10:01 Pulse Ox 99 09/13/22 10:21 O2 Del Method 09/13/22 10:21 Discharge Plan Discharge Patient Disposition: Home Condition: Stable Prescriptions: New docusate sodium 100 mg Capsule 100 mg PO BID Qty: 60 0RF ibuprofen 800 mg Tablet 800 mg PO TID Qty: 30 0RF hydrocodone-acetaminophen 5-325 mg Tablet 1 tab PO Q4H PRN (Reason: Moderate To Severe Pain) Qty: 30 0RF Continued ferrous sulfate 325 mg (65 mg iron) tablet 325 mg PO TID [id number] 6-dha 1 tab PO DAILY Discharge Orders: Discharge Order (Routine); Ordered 09/14/22 Ordered By: Jaycee Gross Patient Instructions: Bleeding (GEN), Preeclampsia and Eclampsia After Delivery (GEN), Hemorrhage (GEN), OB WHC, OB Discharge Report, OB Care at Home, Opioid Safety, OB Home Care, OB Proud Parent Packet Discharge Attestations Time Spent in Discharge Care*: less than 30 min Quality Metrics Clinical Quality Measures [ No reported AMI, CVA or VTE this stay] Coding Level of Care Code Acute Code for Chg Fwd Diagnoses Morbid obesity E66.01 Supervision of normal Z34.90
[2022-09-14 13:42] VITALS: TEMP 36
[2022-09-14 13:43] VITALS: BP 132/71; PULSE 90
[2022-09-14 14:00] VITALS: BP 132/71; PULSE 90; RESP 16
== END 2022-09-14 14:00 | disposition home or self-care (01) | DRG 788 ==
PROVIDERS: Admitting Provider Obstetrics & Gynecology; PCP Family Medicine; Visit Provider Obstetrics & Gynecology
PROC: 10D00Z1 Extraction of Products of Conception, Low, Open Approach (ICD-10-PCS; CPT 59514; principal; 2022-09-12 07:00)
DX: O99.214 Obesity complicating childbirth (principal); Z3A.39 39 weeks gestation of pregnancy; Z37.0 Single live birth
CPT/HCPCS: 36415; 51702; 59025; 59409; 80053; 82570; 84156; 84550; 85025; 96374; 96376; 99211; J0690; J1885; J2274; J2405; J2590; J2765; J3490; J7040; J7120; J7121

== ENCOUNTER 2022-11-09 01:10 | Emergency (ER) | payer MEDICAID, SELFPAY ==
[2022-11-09 01:22] VITALS: PULSE 97; RESP 20; TEMP 37.1; O2SAT 98; BMI 36.9
[2022-11-09 02:50] VITALS: BP 140/94; PULSE 92; RESP 16; O2SAT 97
[2022-11-09 04:01] VITALS: BP 147/101; PULSE 86; RESP 16; O2SAT 96
--- NOTE | 2022-11-09 18:57 | W.ED.EAR ---
HPI - Ear Problem General: Chief complaint: Ear Stated complaint: left ear pain, Left side pain Time Seen by Provider: 11/09/22 03:37 History of Present Illness: 21-year-old female presenting with sudden onset left ear pain. Hearing is somewhat affected. No fever. No congestion. No drainage. She has not had this ear problem before. MD Complaint: ear pain Location: left ear Duration: constant Severity: moderate Associated symptoms: Reports ear or mastoid pain and hearing loss; Denies external ear pain, fever(s), headache(s), neck pain, rhinorrhea or tinnitus Treatment prior to arrival: none Review of Systems Const: Denies: fever(s) Eyes: Denies: change in vision ENMT: Reports: ear or mastoid pain; Denies: throat pain or tinnitus Card: Denies: chest pain Resp: Denies: dyspnea, productive cough or non-productive cough GI: Denies: abdominal pain, nausea or vomiting Musc: Denies: neck pain Neuro: Denies: headache(s) PFSH ED PFSH: Medical History No pertinent past medical history neghx: htn,dm,thyroid,dvt/pe PCP: Dr. Austin Supervision of normal UTI (urinary tract infection) in in second trimester Surgical History Hx of oral surgery (~2014) unsure of specifics of the surgery Hx of tonsillectomy (~2012) Family History Family/Other Breast cancer Maternal Great Grandmother--dx age 60's Denies family history of Colon cancer Ovarian cancer Diabetes Heart disease Hypercholesteremia Hypertension Uterine cancer Thyroid disease Stroke Social History Substance/Drug Use: never Female Reproductive History: Spontaneous abortions: No Physical Exam Const: COMMON NORMALS: no acute distress GENERAL APPEARANCE: cooperative HENMT: COMMON NORMALS: normocephalic, atraumatic and Normal external nose present HEAD & SCALP: normocephalic and atraumatic FACE & SINUS: normal facial exam, sinuses nontender and face symmetric NOSE: Normal external nose present and Normal nares present EXTERNAL AUDITORY CANAL: Abnormal EAC present EAC laterality: left Details: cerumen impaction TYMPANIC MEMBRANE: TM abnormal TM laterality: left Details: obstructed by cerumen THROAT: posterior oropharynx not normal Eye: COMMON NORMALS: negative for Equal, round and reactive pupils present and negative for EOMs intact bilaterally PUPIL: No Equal, round and reactive pupils present Neck/C-Spine: GENERAL: Yes trachea midline Course Vital Signs: Vital signs: Vital Signs Temperature 98.7 F 11/09/22 01:22 Pulse Rate 86 11/09/22 04:01 Respiratory Rate 16 11/09/22 04:01 Blood Pressure 147/101 11/09/22 04:01 Pulse Oximetry 96 11/09/22 04:01 Oxygen Delivery Me thod Room Air 11/09/22 02:50 MDM - Ear Medical Decision Making 21-year-old female with cerumen impaction. She was irrigated. Cerumen partially expelled. She was encouraged to use hydrogen peroxide and water to continue to irrigate the ear. Pain is resolved. She will be allowed home. Discharge Plan Discharge Patient Disposition: Home Clinical Impression: Cerumen impaction Qualifiers: Laterality: left Qualified Code(s): H61.22 - Impacted cerumen, left ear Condition: Stable Prescriptions: No Action ferrous sulfate 325 mg (65 mg iron) tablet 325 mg PO TID [id number] 6-dha 1 tab PO DAILY Discharge Orders: Discharge ED (Routine); Ordered 11/09/22 Ordered By: Telly Hdez Referrals: Alejandro Austin MD [Primary Care Provider] - 1-3 days Patient Instructions: Cerumen Impaction Activity Restrictions/Additional Instructions: Mix hydrogen peroxide and water [id number]. Poor in your ear and let sit for 3 to 5 minutes, before allowing to drain. Do this a couple of times a day for the next 2 to 3 days to clean the rest of the debris out of the ear. Return for fever, worsening pain, hearing loss, other concerning symptoms. Coding Level of Care Code ED [employer] T[employer] for Derrick Marroquin
== END 2022-11-09 04:10 | disposition home or self-care (01) ==
PROVIDERS: Emergency Provider Emergency Medicine; PCP Family Medicine
DX: H61.22 Impacted cerumen, left ear (principal)
CPT/HCPCS: 69209; 99282

== ENCOUNTER 2023-07-16 18:25 | Emergency (ER) | payer MEDICAID, SELFPAY ==
--- NOTE | 2023-07-16 18:34 | ECG_ITS ---
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 Measurements Intervals Williams Rate: 142 P: 71 LA: 127 QRS: 93 QRSD: 82 T: 66 QT: 347 QTc: 534 Interpretive Statements SINUS TACHYCARDIA, POSSIBLE ATRIAL FLUTTER BORDERLINE RIGHT AXIS DEVIATION [QRS AXIS > 90] NONSPECIFIC ST & T-WAVE ABNORMALITY ABNORMAL RHYTHM ECG No previous ECG available for comparison Electronically Signed On 07-17-2023 13:42:11 NURSE CLINICAL by Aurora Silva M.D. [id number]
[2023-07-16 18:35] VITALS: PULSE 141; RESP 16; TEMP 36.8; O2SAT 98; BMI 38.4
[2023-07-16 18:51] VITALS: BP 142/100
--- NOTE | 2023-07-16 18:51 | XRR_ITS ---
PROCEDURE INFORMATION: Exam: XR Chest Exam date and time: 07/16/2023 7:01 PM Age: 22 years old Clinical indication: Shortness of breath; Patient HX: PT C/O bilateral upper abd pain, hypertension. PT has had n/v/d with the abd pain Thursday. PT feels like she is going to pass out walking short distances and has SOB; Additional info: Tachycardia, TECHNIQUE: Imaging protocol: Radiologic exam of the chest. Views: 1 view. COMPARISON: No relevant prior studies available. FINDINGS: Lungs: Unremarkable. No consolidation. Pleural spaces: Unremarkable. No pleural effusion. No pneumothorax. Heart/Mediastinum: Unremarkable. No cardiomegaly. Bones/joints: Unremarkable. XR/XR chest 1V portable [id number] IMPRESSION: No acute findings.
[2023-07-16] MEDS: sodium chloride 0.9% 1,000 ML 999 ML IV ×2 (19:37→20:57)
[2023-07-16] MEDS: ondansetron 2 mg/ML SDV 2 mL 4 MG IVP (19:37)
[2023-07-16 19:41] LABS: Basophils % 0.1 %; Eosinophils % 0.1 %; Hematocrit 50.6 % (36-47); Lymphocytes # 1.6 10^3/uL (1.5-6.5); Mean Corpuscular HGB Conc 30.4 g/dL (30-55); Mean Corpuscular Hemoglobin 23.8 pg (27-33); Mean Corpuscular Volume 78.1 fl (85-98); Mean Platelet Volume 9.9 fL (7.4-10.4); Monocytes # 0.5 10^3/uL (0.2-0.9); Monocytes % 7.6 %; Neutrophils # 4.97 10^3/uL (1.8-8.0); Neutrophils % 70.1 %; Nucleated Red Blood Cells % 0 %; Platelet Count 373 10^3/cmm (157-399); Red Blood Count 6.48 10^6/uL (3.85-5.65); Red Cell Distribution Width 15.8 % (12.1-15.1)
--- NOTE | 2023-07-16 19:47 | W.ED.ABDPA2 ---
HPI - Abdominal Pain General: Chief Complaint: Abdominal Pain Stated Complaint: constant feel of pass out dizzy Time Seen by Provider: 07/16/23 18:51 History of Present Illness: Patient presented to the ER with approximately 4 days of upper abdominal pain nausea vomiting and diarrhea. Patient also states she feels like she got a pass out when she stands up or walks. Patient states that the feeling of passing out is not correlated with the pain that comes and goes. Patient has had watery diarrhea multiple times a day for the roughly the last 4 days. Patient says normally her bowels are consistent. The pain does not radiate and the pain stays in the upper area of the abdomen. Patient has not found anything makes the pain better or worse. Related Data: Date of Last Menstrual Period: 07/16/23 Review of Systems General: Reports: 10 or more systems reviewed and unremarkable except in HPI and below PFSH ED PFSH: Medical History UTI (urinary tract infection) in in second trimester Supervision of normal No pertinent past medical history neghx: htn,dm,thyroid,dvt/pe PCP: Dr. Austin Surgical History Hx of tonsillectomy (~2012) Hx of oral surgery (~2014) unsure of specifics of the surgery Family History Family/Other Breast cancer Maternal Great Grandmother--dx age 60's Denies family history of Colon cancer Ovarian cancer Diabetes Heart disease Hypercholesteremia Hypertension Uterine cancer Thyroid disease Stroke Social History Substance/Drug Use: never Female Reproductive History: Date of last menstrual period: 07/16/23 Spontaneous abortions: No Physical Exam Const: COMMON NORMALS: no acute distress, average body habitus, patient oriented x3, no limitations, healthy appearing, alert and well nourished HENMT: COMMON NORMALS: normocephalic, atraumatic, hearing grossly normal bilaterally, external ears normal, Normal external nose present, moist oral mucous membranes and oropharynx normal HEAD & SCALP: normocephalic and atraumatic NOSE: Normal external nose present EXTERNAL EAR: Yes external ears normal Neck/C-Spine: COMMON NORMALS: full ROM, no lymphadenopathy, supple, no meningeal signs, no JVD and Thyroid normal THYROID: Thyroid normal Chest: COMMONS NORMALS: normal inspection of the chest and normal palpation of entire chest wall Resp: COMMON NORMALS: normal respiratory effort, No retractions, No use of accessory muscles and clear to auscultation bilaterally AUSCULTATION: clear to auscultation bilaterally Cardio: COMMON NORMALS: no JVD, regular rhythm, S1 normal heart sound present, S2 normal heart sound present, No gallops present (Cardio), No clicks present (Cardio), No murmurs present (Cardio) and No rub (Cardio); negative for regular rate (Tachycardic) RATE: abnormal rate (Tachycardic) RHYTHM: regular rhythm HEART SOUNDS: S1 normal heart sound present and S2 normal heart sound present GI: COMMON NORMALS: Normal to inspection, nondistended, normoactive bowel sounds present, Soft to palpation, No hepatosplenomegaly present and no masses; negative for non-tender (Tender to palpate upper abdomen.) PALPATION: Yes Soft to palpation and Yes No hepatosplenomegaly present Neuro: COMMON NORMALS: patient oriented x3 SENSORIUM/ORIENTATION: Yes alert MENINGEAL SIGNS: Yes no meningeal signs Course Vital Signs: Vital signs: Vital Signs Temperature 98.2 F 07/16/23 18:35 Pulse Rate 112 H 07/16/23 22:12 Respiratory Rate 18 07/16/23 22:12 Blood Pressure 135/83 07/16/23 22:12 Pulse Oximetry 98 07/16/23 22:12 Oxygen Delivery Me thod Room Air 07/16/23 22:12 MDM - Abdominal Pain Medical Decision Making Patient was given 2 L normal saline bolus and decreased her heart rate from 1 41-1 12, lab work was obtained which showed patient urinary tract infection. Patient was given Cipro 500 mg as well as 4 mg Zofran. Patient be discharged home with Zofran and Cipro. Differential Diagnosis Likely abdominal pain and gastroenteritis; Unlikely acute appendicitis, calculus of kidney, constipation, diverticulitis, endometriosis, pancreatitis or small bowel obstruction Medical Records I reviewed the patient's medical records. Lab Data I reviewed the patient's lab results. 07/16/23 19:20 07/16/23 19:20 Labs/Radiology: Radiology Impressions Chest X-Ray 07/16/23 18:51 IMPRESSION: No acute findings. Laboratory Results WBC 7.10 10^3/uL (4.5-13.0) 07/16/23 19:20 RBC 6.48 10^6/uL (3.85-5.65) H 07/16/23 19:20 Hgb 15.40 g/dL (12.4-14.8) H 07/16/23 19:20 Hct 50.6 % (36-47) H 07/16/23 19:20 MCV 78.1 fl (85-98) L 07/16/23 19:20 MCH 23.8 pg (27-33) L 07/16/23 19:20 MCHC 30.4 g/dL (30-55) 07/16/23 19:20 RDW 15.8 % (12.1-15.1) H 07/16/23 19:20 Plt Count 373 10^3/cmm (157-399) 07/16/23 19:20 MPV 9.9 fL (7.4-10.4) 07/16/23 19:20 Neut % (Auto) 70.1 % 07/16/23 19:20 Lymph % (Auto) 22.0 % 07/16/23 19:20 [place] % (Auto) 7.6 % 07/16/23 19:20 Eos % (Auto) 0.1 % 07/16/23 19:20 Baso % (Auto) 0.1 % 07/16/23 19:20 Neut # (Auto) 4.97 10^3/uL (1.8-8.0) 07/16/23 19:20 Lymph # (Auto) 1.6 10^3/uL (1.5-6.5) 07/16/23 19:20 [place] # (Auto) 0.5 10^3/uL (0.2-0.9) 07/16/23 19:20 Eos # (Auto) 0.0 10^3/uL (0.0-0.8) 07/16/23 19:20 Baso # (Auto) 0.0 10^3/uL (0.0-0.1) 07/16/23 19:20 Nucleated RBC % (auto) 0 % 07/16/23 19:20 Nucleated RBCs # 0.0 /100WBC 07/16/23 19:20 Sodium 133 mmol/L (136-145) L 07/16/23 19:20 Potassium 3.4 mmol/L (3.5-5.1) L 07/16/23 19:20 Chloride 99 mmol/L (98-107) 07/16/23 19:20 Carbon Dioxide 17 mmol/L (22-29) L 07/16/23 19:20 Anion Gap 20.4 (5-19) H 07/16/23 19:20 BUN 21 mg/dL (6-20) H 07/16/23 19:20 Creatinine 0.9 mg/dL (0.5-0.9) 07/16/23 19:20 GFR Calculation 79.8 mL/min (90-130) L 07/16/23 19:20 Glucose 133 mg/dL (65-115) H 07/16/23 19:20 Calculated Osmolality 281 mOsm/kg (285-295) L 07/16/23 19:20 Calcium 9.3 mg/dL (8.5-10.5) 07/16/23 19:20 Magnesium 2.2 mg/dL (1.7-2.3) 07/16/23 19:20 Total Bilirubin 0.2 mg/dL (0.15-1.2) 07/16/23 19:20 AST 16 U/L (0-32) 07/16/23 19:20 ALT 21 U/L (0-33) 07/16/23 19:20 Alkaline Phosphatase 101 U/L (35-105) 07/16/23 19:20 Total Protein 9.0 g/dL (6.6-8.7) H 07/16/23 19:20 Albumin 4.5 g/dL (3.5-5.2) 07/16/23 19:20 Globulin 4.5 g/dL (1.3-4.6) 07/16/23 19:20 Lipase 23 U/L (13-60) 07/16/23 19:20 HCG, Qual Negative (Negative) 07/16/23 19:20 Urine Color Dark yellow (Yellow) 07/16/23 22:00 Urine Appearance Turbid (CLEAR) A 07/16/23 22:00 Urine pH 5 (5-7) 07/16/23 22:00 Ur Specific [place] 1.020 (1.005-1.030) 07/16/23 22:00 Urine Protein 2+ (Negative) H 07/16/23 22:00 Urine Glucose (UA) Norm (Normal) 07/16/23 22:00 Urine Ketones 1+ (Negative) H 07/16/23 22:00 Urine Blood 3+ (Negative) H 07/16/23 22:00 Urine Nitrate Positive (Negative) H 07/16/23 22:00 Urine Bilirubin 1+ (Negative) H 07/16/23 22:00 Urine Urobilinogen Neg mg/dL (Negative) 07/16/23 22:00 Ur Leukocyte Esterase 2+ (Negative) H 07/16/23 22:00 Urine RBC 15-25 /hpf (0-2) H 07/16/23 22:00 Urine WBC 40-55 /hpf (0-5) H 07/16/23 22:00 Ur Squamous Epith Cells 5-10 /hpf (0-5) H 07/16/23 22:00 Amorphous Sediment Not Reportable 07/16/23 22:00 Urine Bacteria 3+ /hpf (NONE) H 07/16/23 22:00 Urine Mucus 2+ /hpf 07/16/23 22:00 All radiology interpretation(s) finalized by discharge EKG Data EKG 1: I personally reviewed and interpreted this EKG as follows: EKG interpretation date: 07/16/23 EKG interpretation time: 18:34 Prior EKG tracings: not available for review Interpretation: EKG showed ventricular rate 142 beats minute, GA interval 127, QRS duration 82, QTc of 429, sinus tachycardia, borderline right axis deviation, nonspecific ST-T wave abnormality Discharge Plan Discharge Patient Disposition: Home Clinical Impression: Gastroenteritis, Urinary tract infection Condition: Stable Prescriptions: No Action ferrous sulfate 325 mg (65 mg iron) tablet 325 mg PO TID ofloxacin 0.3 % drops 2 drp ophthalmic (eye) QID 7 Days Qty: 10 0RF [id number] 6-dha 1 tab PO DAILY Discharge Orders: Discharge ED (Routine); Ordered 07/16/23 Ordered By: Johnny Schafer Referrals: Alejandro Austin MD [Primary Care Provider] - 1 week Patient Instructions: Gastroenteritis (ED), Urinary Tract Infection in Women (DC) Activity Restrictions/Additional Instructions: Please take all your medicine as directed. Please follow-up with your family practice doctor within the next 7 days for further evaluation and treatment. If your symptoms do not get better or worsen please feel free to return to the ER. Coding Level of Care Code ED [employer]ship for Derrick Marroquin
[2023-07-16 19:52] LABS: HCG, Serum Qual Negative (Negative)
[2023-07-16 19:55] LABS: Alanine Aminotransferase 21 U/L (0-33); Albumin Level 4.5 g/dL (3.5-5.2); Alkaline Phosphatase 101 U/L (35-105); Anion Gap 20.4 (5-19); Aspartate Amino Transferase 16 U/L (0-32); Blood Urea Nitrogen 21 mg/dL (6-20); Calcium 9.3 mg/dL (8.5-10.5); Carbon Dioxide 17 mmol/L (22-29); Chloride 99 mmol/L (98-107); Globulin 4.5 g/dL (1.3-4.6); Glomerular Filtration Rate 79.8 mL/min (90-130); Glucose 133 mg/dL (65-115); Lipase 23 U/L (13-60); Magnesium 2.2 mg/dL (1.7-2.3); Osmolality Calculated 281 mOsm/kg (285-295); Potassium 3.4 mmol/L (3.5-5.1); Sodium 133 mmol/L (136-145); Total Bilirubin 0.2 mg/dL (0.15-1.2)
[2023-07-16 22:12] VITALS: BP 135/83; PULSE 112; RESP 18; O2SAT 98
[2023-07-16 22:18] LABS: Glucose Urine UA Norm (Normal); Protein Urine 2+ (Negative); Urine Appearance Turbid (CLEAR); Urine Color Dark Yellow (Yellow); pH Urine 5 (5-7)
[2023-07-16 22:19] LABS: Add Urine Microscopic? YES; Bilirubin Urine 1+ (Negative); Blood Urine 3+ (Negative); Ketones Urine 1+ (Negative); Leukocyte Esterase Urine 2+ (Negative); Nitrate Urine Positive (Negative); Urobilinogen Urine Neg (Negative)
[2023-07-16 22:20] LABS: Add Urine Culture? Yes; Bacteria Urine 3+ /hpf; Mucus Urine 2+ /hpf; RBC Urine 15-25 /hpf (0-2); WBC Urine 40-55 /hpf (0-5)
[2023-07-16] MEDS: ciprofloxacin 500 mg Tablet PO (22:54)
[2023-07-16 22:55] VITALS: BP 140/83; PULSE 108; RESP 18; O2SAT 100
== END 2023-07-16 22:56 | disposition home or self-care (01) ==
PROVIDERS: Emergency Medicine; Emergency Provider Emergency Medicine; PCP Family Medicine
DX: K52.9 Noninfective gastroenteritis and colitis, unspecified (principal); N39.0 Urinary tract infection, site not specified; Z87.440 Personal history of urinary (tract) infections
CPT/HCPCS: 36415; 71045; 80053; 81001; 83690; 83735; 84703; 85025; 87077; 87086; 87186; 93005; 96361; 96374; 99285; J2405; J7030

== ENCOUNTER 2024-03-13 21:58 | Emergency (ER) | payer MEDICAID, SELFPAY ==
[2024-03-13 22:04] VITALS: BP 145/90; PULSE 108; RESP 17; TEMP 36.8; O2SAT 98; BMI 40.1
--- NOTE | 2024-03-13 22:44 | W.ED.FEMALGU ---
HPI - Female Genitourinary General: Chief complaint: Urogenital-Female Stated complaint: spotting while believed to be Time Seen by Provider: 03/13/24 22:13 History of Present Illness: 23-year-old female who by history is a G2, P1. She believes she is about 6 weeks , and has had 2 positive home test. She had intercourse last night. She noticed some spotting this evening. No significant cramping. No clots, no passage of tissue. No fever. Date of Last Menstrual Period: 02/09/24 Related Data Home Medications Medication Instructions Recorded Confirmed [id number] 6-dha 1 tab PO DAILY 05/13/22 06/15/23 ferrous sulfate 325 mg (65 mg 325 mg PO TID 07/25/22 06/15/23 iron) tablet Previous Rx's Medication Instructions Recorded ofloxacin 0.3 % eye drops 2 drp ophthalmic (eye) QID 7 days 06/15/23 #10 mL ciprofloxacin HCl 500 mg tablet 500 mg PO Q12H #20 tabs 07/16/23 ondansetron HCl 4 mg tablet 4 mg PO TID PRN nausea and 07/16/23 vomiting #10 tabs Allergies Allergy/AdvReac Type Severity Reaction Status Date / Time amoxicillin Allergy ALGY-Hives Verified 03/13/24 22:09 [facility] ED PFSH: Medical History UTI (urinary tract infection) in in second trimester Supervision of normal No pertinent past medical history neghx: htn,dm,thyroid,dvt/pe PCP: Dr. Austin Surgical History Hx of tonsillectomy (~2012) Hx of oral surgery (~2014) unsure of specifics of the surgery Family History Family/Other Breast cancer Maternal Great Grandmother--dx age 60's Denies family history of Colon cancer Ovarian cancer Diabetes Heart disease Hypercholesteremia Hypertension Uterine cancer Thyroid disease Stroke Social History Substance/Drug Use: never Female Reproductive History: Date of last menstrual period: 02/09/24 Spontaneous abortions: No Physical Exam Const: COMMON NORMALS: no acute distress GENERAL APPEARANCE: cooperative; not ill appearing and not frail appearing HENMT: COMMON NORMALS: normocephalic, atraumatic and Normal external nose present HEAD & SCALP: normocephalic and atraumatic FACE & SINUS: normal facial exam and face symmetric NOSE: Normal external nose present Eye: COMMON NORMALS: Equal, round and reactive pupils present and EOMs intact bilaterally PUPIL: Yes Equal, round and reactive pupils present Neck/C-Spine: GENERAL: Yes trachea midline Chest: CHEST: Yes Symmetrical chest wall rise Resp: COMMON NORMALS: normal respiratory effort, No retractions, No use of accessory muscles and clear to auscultation bilaterally AUSCULTATION: clear to auscultation bilaterally Cardio: COMMON NORMALS: regular rate and regular rhythm RATE: regular rate RHYTHM: regular rhythm GI: COMMON NORMALS: Normal to inspection, nondistended, normoactive bowel sounds present PALPATION: No Tenderness to palpation present (GI) and No Guarding due to palpation present (GI) Extremity: COMMON NORMALS: no pedal edema Neuro: JOCELYNE COMA SCALE: document GCS findings Jocelyne coma scale eye opening: Spontaneous Jocelyne coma scale verbal response: Orientated Jocelyne coma scale motor response: [place] commands [place] coma scale total score: 15 SENSORY EXAM: Yes extremities (intact) Psych: COMMON NORMALS: speech normal SPEECH: Yes normal speech Skin: COMMON NORMALS: no rashes or lesions noted GENERAL SKIN EXAM: no rashes or lesions noted Course Vital Signs: Vital signs: Vital Signs Temperature 98.2 F 03/13/24 22:04 Pulse Rate 108 H 03/13/24 22:04 Respiratory Rate 17 03/13/24 22:04 Blood Pressure 145/90 03/13/24 22:04 Pulse Oximetry 98 03/13/24 22:04 Oxygen Delivery Me thod Room Air 03/13/24 22:04 MDM - Female Medical Decision Making CBC and BMP are not remarkable. Liver enzymes are normal. Urinalysis is contaminated, but does show 3+ blood. Other parameters are not remarkable given blood presence of mild contamination. Quantitative hCG is 1. She be discharged to home to return for any problems. Outpatient follow-up. Lab Data 03/13/24 22:44 03/13/24 22:44 Laboratory Results WBC 9.63 10^3/uL (3.29-11.43) 03/13/24 22:44 RBC 4.90 10^6/uL (3.85-5.65) 03/13/24 22:44 Hgb 12.20 g/dL (11.27-16.99) 03/13/24 22:44 Hct 39.6 % (36-47) 03/13/24 22:44 MCV 80.8 fl (85-98) L 03/13/24 22:44 MCH 24.9 pg (27-33) L 03/13/24 22:44 MCHC 30.8 g/dL (30-55) 03/13/24 22:44 RDW 14.8 % (12.1-15.1) 03/13/24 22:44 Plt Count 281 10^3/cmm (157-399) 03/13/24 22:44 MPV 10.7 fL (7.4-10.4) H 03/13/24 22:44 Neut % (Auto) 51.6 % 03/13/24 22:44 Lymph % (Auto) 42.0 % 03/13/24 22:44 Branch % (Auto) 5.3 % 03/13/24 22:44 Eos % (Auto) 0.7 % 03/13/24 22:44 Baso % (Auto) 0.2 % 03/13/24 22:44 Neut # (Auto) 4.97 10^3/uL (1.8-7.7) 03/13/24 22:44 Lymph # (Auto) 4.0 10^3/uL (0.8-4.8) 03/13/24 22:44 Branch # (Auto) 0.5 10^3/uL (0.2-0.9) 03/13/24 22:44 Eos # (Auto) 0.1 10^3/uL (0.0-0.8) 03/13/24 22:44 Baso # (Auto) 0.0 10^3/uL (0.0-0.1) 03/13/24 22:44 Nucleated RBC % (auto) 0 % 03/13/24 22:44 Nucleated RBCs # 0.0 /100WBC 03/13/24 22:44 Sodium 137 mmol/L (136-145) 03/13/24 22:44 Potassium 3.9 mmol/L (3.5-5.1) 03/13/24 22:44 Chloride 103 mmol/L (98-107) 03/13/24 22:44 Carbon Dioxide 21 mmol/L (22-29) L 03/13/24 22:44 Anion Gap 16.9 (5-19) 03/13/24 22:44 BUN 9 mg/dL (6-20) 03/13/24 22:44 Creatinine 0.5 mg/dL (0.5-0.9) 03/13/24 22:44 GFR Calculation 155.7 mL/min (90-130) H 03/13/24 22:44 Glucose 127 mg/dL (65-115) H 03/13/24 22:44 Calculated Osmolality 284 mOsm/kg (285-295) L 03/13/24 22:44 Calcium 8.9 mg/dL (8.5-10.5) 03/13/24 22:44 Total Bilirubin 0.2 mg/dL (0.15-1.2) 03/13/24 22:44 AST 14 U/L (0-32) 03/13/24 22:44 ALT 21 U/L (0-33) 03/13/24 22:44 Alkaline Phosphatase 75 U/L (35-105) 03/13/24 22:44 Total Protein 7.1 g/dL (6.6-8.7) 03/13/24 22:44 Albumin 4.0 g/dL (3.5-5.2) 03/13/24 22:44 Globulin 3.1 g/dL (1.3-4.6) 03/13/24 22:44 Ser , Semi-Qnt 1.00 mIU/mL 03/13/24 22:44 Urine Color Yellow (Yellow) 03/13/24 23:08 Urine Appearance Slightly cloudy (CLEAR) 03/13/24 23:08 Urine pH 5.5 (5-7) 03/13/24 23:08 Ur Specific [place] 1.026 (1.005-1.030) 03/13/24 23:08 Urine Protein Negative (Negative) 03/13/24 23:08 Urine Glucose (UA) Negative (Normal) 03/13/24 23:08 Urine Ketones Negative (Negative) 03/13/24 23:08 Urine Blood 3+ (Negative) A 03/13/24 23:08 Urine Nitrate Positive (Negative) A 03/13/24 23:08 Urine Bilirubin Negative (Negative) 03/13/24 23:08 Urine Urobilinogen 1.0 mg/dL (Negative) 03/13/24 23:08 Ur Leukocyte Esterase Trace (Negative) A 03/13/24 23:08 Urine RBC 0-2 /hpf (0-2) 03/13/24 23:08 Urine WBC 6-10 /hpf (0-5) 03/13/24 23:08 Ur Squamous Epith Cells 6-10 /hpf (0-5) 03/13/24 23:08 Amorphous Sediment Not Reportable 03/13/24 23:08 Urine Bacteria 4+ /hpf (NONE) H 03/13/24 23:08 Hyaline Casts 0-4 /lpf H 03/13/24 23:08 Blood Type A Positive 03/13/24 22:44 Rho(D) Type Rh positive 03/13/24 22:44 No radiology studies performed this visit Discharge Plan Discharge Patient Disposition: Home Clinical Impression: Vaginal bleeding Condition: Stable Prescriptions: No Action ferrous sulfate 325 mg (65 mg iron) tablet 325 mg PO TID ofloxacin 0.3 % drops 2 drp ophthalmic (eye) QID 7 Days Qty: 10 0RF [id number] 6-dha 1 tab PO DAILY ciprofloxacin HCl 500 mg tablet 500 mg PO Q12H Qty: 20 0RF ondansetron HCl 4 mg tablet 4 mg PO TID PRN (Reason: nausea and vomiting) Qty: 10 0RF Discharge Orders: Discharge ED (Routine); Ordered 03/13/24 Ordered By: Telly Hdez Referrals: Alejandro Austin MD [Primary Care Provider] - 4-7 days Patient Instructions: Abnormal (Dysfunctional) Uterine Bleeding (ED), Opioid Safety, Pain Management Activity Restrictions/Additional Instructions: Return for heavy vaginal bleeding, soaking 1 pad per hour for more than 3 hours. Return for fever. Return for increasing abdominal or pelvic pain or other discharge. See your doctor this week. Coding Level of Care Code ED Dock Superintendent for Derrick Marroquin
[2024-03-13 22:48] LABS: Basophils % 0.2 %; Eosinophils # 0.1 10^3/uL (0.0-0.8); Eosinophils % 0.7 %; Hematocrit 39.6 % (36-47); Mean Corpuscular HGB Conc 30.8 g/dL (30-55); Mean Corpuscular Hemoglobin 24.9 pg (27-33); Mean Corpuscular Volume 80.8 fl (85-98); Mean Platelet Volume 10.7 fL (7.4-10.4); Monocytes # 0.5 10^3/uL (0.2-0.9); Monocytes % 5.3 %; Neutrophils # 4.97 10^3/uL (1.8-7.7); Neutrophils % 51.6 %; Nucleated Red Blood Cells % 0 %; Platelet Count 281 10^3/cmm (157-399); Red Cell Distribution Width 14.8 % (12.1-15.1); White Blood Count 9.63 10^3/uL (3.29-11.43)
[2024-03-13 23:12] LABS: Charge for UA Resulting for Rev
[2024-03-13 23:17] LABS: Alanine Aminotransferase 21 U/L (0-33); Alkaline Phosphatase 75 U/L (35-105); Anion Gap 16.9 (5-19); Aspartate Amino Transferase 14 U/L (0-32); Blood Urea Nitrogen 9 mg/dL (6-20); Calcium 8.9 mg/dL (8.5-10.5); Carbon Dioxide 21 mmol/L (22-29); Chloride 103 mmol/L (98-107); Creatinine Clr Calc Pharmacy 258.2202; Globulin 3.1 g/dL (1.3-4.6); Glomerular Filtration Rate 155.7 mL/min (90-130); Glucose 127 mg/dL (65-115); Osmolality Calculated 284 mOsm/kg (285-295); Potassium 3.9 mmol/L (3.5-5.1); Sodium 137 mmol/L (136-145); Total Bilirubin 0.2 mg/dL (0.15-1.2); Total Protein 7.1 g/dL (6.6-8.7)
[2024-03-13 23:19] LABS: Bacteria Urine 4+ /hpf; Hyaline Casts Urine 0-4 /lpf; RBC Urine 0-2 /hpf (0-2)
[2024-03-13 23:23] LABS: Bilirubin Urine Negative (Negative); Blood Urine 3+ (Negative); Glucose Urine UA Negative (Normal); Ketones Urine Negative (Negative); Leukocyte Esterase Urine Trace (Negative); Nitrate Urine Positive (Negative); Protein Urine Negative (Negative); Specific Gravity, Urine 1.026 (1.005-1.030); Urine Color Yellow (Yellow); pH Urine 5.5 (5-7)
[2024-03-13 23:24] LABS: Add Urine Culture? Yes; Urine Appearance Slightly Cloudy (CLEAR)
[2024-03-13 23:40] VITALS: BP 199/156; PULSE 98; RESP 18; O2SAT 98
== END 2024-03-13 23:41 | disposition home or self-care (01) ==
PROVIDERS: Emergency Provider Emergency Medicine; PCP Family Medicine
DX: O20.9 Hemorrhage in early pregnancy, unspecified (principal); Z3A.01 Less than 8 weeks gestation of pregnancy
CPT/HCPCS: 36415; 80053; 81003; 81015; 84702; 85025; 86900; 87077; 87086; 87186; 99283